=== PATIENT | male | born 1960 | race American Indian/Alaskan Native ===

== ENCOUNTER → 2017-08-30 15:19 | Outpatient (CLI) | payer BC, SELFPAY ==
[2017-08-30 18:01] LABS: Absolute Lymphocyte Count 2.44 X10^3/ul (0.83-4.51); Basophil# 0.06 X10^3/uL; Basophil% 0.7 % (0-1); Eosinophil# 0.26 X10^3/uL; Eosinophils% 3.1 % (0-5); Hematocrit 37.3 % (40-54); Hemoglobin 12.5 g/dl (13.0-16.5); Lymphocyte # 2.44 X10^3/ul (4.0); Lymphocyte % 28.8 % (19-41); Mean Corp Hgb Conc 33.5 g/gl (32-36); Mean Corpuscular Hgb 32.6 pg (27.0-32.0); Mean Corpuscular Volume 97.4 fL (80-94); Mean Platelet Vol. 10.5 fl (6.2-12.0); Monocyte# 0.65 X10^3/uL; Monocyte% 7.7 % (0-10); Neutrophil # 5.04 X10^3/uL (2.7-7.7); Neutrophil % 59.6 % (47-70); Platelet Count 191 K/mm3 (150-450); RBC Distribution Width CV 13.5 % (11.6-14.6); RBC Distribution Width SD 46.4 fl (35.1-43.9); Red Blood Count 3.83 M/mm3 (4.6-6.2); White Blood Count 8.5 K/mm3 (4.4-11.0)
[2017-08-30 18:10] LABS: POSITIVE COUNT NO; POSITIVE DIFFERENTIAL NO; POSITIVE MORPHOLOGY NO
[2017-08-30 18:37] LABS: ALB/GLOB Ratio 0.8 RATIO (0.9-2.4); AST(SGOT) 17 U/L (15-37); Alanine Aminotransfer ALT/SGPT 25 U/L (16-61); Albumin, Serum 3.4 g/dL (3.2-5.0); Alkaline Phosphatase 69 U/L (45-117); Anion Gap 8 (5-15); BUN 18 mg/dL (7-18); BUN/Creat Ratio 16.4 RATIO (10-20); Calcium,Total 8.5 mg/dL (8.5-10.1); Chloride 107 mmol/L (98-107); EST Glomerular Filtration Rate 73 mL/min (>60); Est Glom Filt Rate - Afr Amer 89 mL/min (>60); Glucose 105 mg/dL (74-106); Potassium 3.9 mmol/L (3.5-5.1); Protein, Total 7.4 g/dL (6.4-8.2); Sodium Level 137 mmol/L (136-145)
== END ==
PROVIDERS: Family Provider Family Medicine; PCP Family Medicine; Visit Provider Internal Medicine Rheumatology
DX: L40.59 Other psoriatic arthropathy (principal); L40.8 Other psoriasis; I83.10 Varicose veins of unspecified lower extremity with inflammation; I10 Essential (primary) hypertension; E78.5 Hyperlipidemia, unspecified; F32.89 Other specified depressive episodes; G25.81 Restless legs syndrome; Z79.899 Other long term (current) drug therapy
CPT/HCPCS: 36415; 80053; 85025

== ENCOUNTER → 2017-11-09 15:12 | Outpatient (CLI) | payer BC, SELFPAY ==
--- NOTE | 2017-11-09 15:12 | DT_ITS ---
This patient was seen during an EMR downtime November 08, 2017 - November 15, 2017. This patient may have a combination of paper and electronic documentation or all paper documentation. All documentation is viewable within the e-chart portion of [facility] for each patient visit.
[2017-11-15 16:54] LABS: BUN 20 mg/dL (7-18); Glucose 84 mg/dL (74-106)
[2017-11-15 16:55] LABS: ALB/GLOB Ratio 0.9 RATIO (0.9-2.4); AST(SGOT) 21 U/L (15-37); Alanine Aminotransfer ALT/SGPT 23 U/L (16-61); Albumin, Serum 3.6 g/dL (3.2-5.0); Alkaline Phosphatase 65 U/L (45-117); Anion Gap 10 (5-15); BUN/Creat Ratio 15.9 RATIO (10-20); Calcium,Total 8.3 mg/dL (8.5-10.1); Chloride 107 mmol/L (98-107); Creatinine, Serum 1.26 mg/dL (0.70-1.30); EST Glomerular Filtration Rate 63 mL/min (>60); Est Glom Filt Rate - Afr Amer 76 mL/min (>60); Globulin 3.8 g/dL (2.2-4.2); Potassium 4.1 mmol/L (3.5-5.1); Protein, Total 7.4 g/dL (6.4-8.2); Sodium Level 139 mmol/L (136-145)
[2017-11-15 17:42] LABS: Hemoglobin 12.8 g/dl (13.0-16.5); Red Blood Count 3.96 M/mm3 (4.6-6.2); White Blood Count 7.9 K/mm3 (4.4-11.0)
[2017-11-15 17:43] LABS: Absolute Lymphocyte Count 2.34 X10^3/ul (0.83-4.51); Absolute Neutrophil Count 4.4 X10^3/uL (2.0-7.7); Basophil% 0.6 % (0-1); Eosinophils% 4.7 % (0-5); Hematocrit 38.6 % (40-54); Lymphocyte # 2.34 X10^3/ul (4.0); Lymphocyte % 29.8 % (19-41); Mean Corp Hgb Conc 33.2 g/gl (32-36); Mean Corpuscular Hgb 32.3 pg (27.0-32.0); Mean Corpuscular Volume 97.5 fL (80-94); Mean Platelet Vol. 9.5 fl (6.2-12.0); Monocyte% 8.1 % (0-10); Neutrophil # 4.44 X10^3/uL (2.7-7.7); Neutrophil % 56.5 % (47-70); POSITIVE COUNT NO; POSITIVE DIFFERENTIAL NO; POSITIVE MORPHOLOGY NO; Platelet Count 233 K/mm3 (150-450)
[2017-11-15 17:44] LABS: Basophil# 0.05 X10^3/uL; Eosinophil# 0.37 X10^3/uL; Monocyte# 0.64 X10^3/uL
== END ==
PROVIDERS: Family Provider Family Medicine; PCP Family Medicine; Visit Provider Internal Medicine Rheumatology
DX: L40.59 Other psoriatic arthropathy (principal); Z79.899 Other long term (current) drug therapy; L40.8 Other psoriasis; I83.10 Varicose veins of unspecified lower extremity with inflammation; I10 Essential (primary) hypertension; E78.5 Hyperlipidemia, unspecified; F32.89 Other specified depressive episodes; G25.81 Restless legs syndrome
CPT/HCPCS: 36415; 80053; 85025

== ENCOUNTER → 2018-01-31 16:35 | Outpatient (CLI) | payer BC, SELFPAY ==
[2018-01-31 18:06] LABS: Absolute Neutrophil Count 3.8 X10^3/uL (2.0-7.7); Basophil# 0.07 X10^3/uL; Basophil% 0.9 % (0-1); Eosinophil# 0.44 X10^3/uL; Eosinophils% 5.8 % (0-5); Hematocrit 38.6 % (40-54); Hemoglobin 12.8 g/dl (13.0-16.5); Lymphocyte % 37.1 % (19-41); Mean Corp Hgb Conc 33.2 g/gl (32-36); Mean Corpuscular Hgb 32.2 pg (27.0-32.0); Mean Corpuscular Volume 97.2 fL (80-94); Mean Platelet Vol. 10.7 fl (6.2-12.0); Monocyte# 0.44 X10^3/uL; Monocyte% 5.8 % (0-10); Neutrophil # 3.79 X10^3/uL (2.7-7.7); Neutrophil % 50.3 % (47-70); Platelet Count 215 K/mm3 (150-450); RBC Distribution Width CV 13.5 % (11.6-14.6); RBC Distribution Width SD 47.8 fl (35.1-43.9); Red Blood Count 3.97 M/mm3 (4.6-6.2); White Blood Count 7.6 K/mm3 (4.4-11.0)
[2018-01-31 18:08] LABS: POSITIVE COUNT NO; POSITIVE DIFFERENTIAL NO; POSITIVE MORPHOLOGY NO
[2018-01-31 18:21] LABS: ALB/GLOB Ratio 0.9 RATIO (0.9-2.4); AST(SGOT) 17 U/L (15-37); Alanine Aminotransfer ALT/SGPT 24 U/L (16-61); Albumin, Serum 3.5 g/dL (3.2-5.0); Alkaline Phosphatase 62 U/L (45-117); Anion Gap 9 (5-15); BUN 16 mg/dL (7-18); BUN/Creat Ratio 12.1 RATIO (10-20); Calcium,Total 8.9 mg/dL (8.5-10.1); Chloride 108 mmol/L (98-107); Creatinine, Serum 1.32 mg/dL (0.70-1.30); EST Glomerular Filtration Rate 59 mL/min (>60); Est Glom Filt Rate - Afr Amer 72 mL/min (>60); Glucose 109 mg/dL (74-106); Potassium 4.1 mmol/L (3.5-5.1); Protein, Total 7.5 g/dL (6.4-8.2); Sodium Level 138 mmol/L (136-145)
== END ==
PROVIDERS: Family Provider Family Medicine; PCP Family Medicine; Visit Provider Internal Medicine Rheumatology
DX: L40.59 Other psoriatic arthropathy (principal); L40.8 Other psoriasis; I83.10 Varicose veins of unspecified lower extremity with inflammation; I10 Essential (primary) hypertension; E78.5 Hyperlipidemia, unspecified; F32.89 Other specified depressive episodes; G25.81 Restless legs syndrome; Z79.899 Other long term (current) drug therapy
CPT/HCPCS: 36415; 80053; 85025

== ENCOUNTER → 2018-03-09 20:27 | Outpatient (CLI) | payer BC, SELFPAY ==
[2018-03-09 20:29] LABS: Pathologist Comment May follow
[2018-03-09 21:00] LABS: Synovial Fld Mononuclear WBC % 73.2 %; Synovial Fld Polynuclear WBC # 0.134 10^3/ul; Synovial Fld Polynuclear WBC % 26.8 %
[2018-03-09 21:58] LABS: AUTO B FLUID DILUENT BKGD CT WBC <0.1 RBC <0.01 (W<.1,R<.01); Appearance /Synovial Fluid Sl hazy (CLEAR); Color / Synovial Fluid Yellow (Pale Yellow); RBC /Synovial Fluid 9 /mm3 (0); Source / Synovial Fluid LEFT KNEE; Source- Body Fluid SYNOVIAL
[2018-03-09 21:59] LABS: Lymph 12 %; Monocyte /Synovial Fluid 6 %; Neutrophil 1 % (0-25); Other Cell /Synovial Fluid 81 %; Synovial Fld Mononuclear WBC # 0.366 10^3/ul
[2018-03-10 15:47] LABS: Pathologist Review Reviewed
== END ==
PROVIDERS: Visit Provider Internal Medicine Rheumatology
DX: L40.59 Other psoriatic arthropathy (principal); L40.8 Other psoriasis; I83.10 Varicose veins of unspecified lower extremity with inflammation; I10 Essential (primary) hypertension; E78.5 Hyperlipidemia, unspecified; F32.89 Other specified depressive episodes; G25.81 Restless legs syndrome; Z79.899 Other long term (current) drug therapy
CPT/HCPCS: 87070; 87075; 87205; 89050; 89051; 89060

== ENCOUNTER → 2018-05-03 16:04 | Outpatient (CLI) | payer BC, SELFPAY ==
[2018-05-03 17:52] LABS: Absolute Lymphocyte Count 2.22 X10^3/ul (0.83-4.51); Absolute Neutrophil Count 3.1 X10^3/uL (2.0-7.7); Basophil# 0.07 X10^3/uL; Basophil% 1.1 % (0-1); Eosinophil# 0.47 X10^3/uL; Eosinophils% 7.1 % (0-5); Hematocrit 38.3 % (40-54); Hemoglobin 12.5 g/dl (13.0-16.5); Lymphocyte # 2.22 X10^3/ul (4.0); Lymphocyte % 33.7 % (19-41); Mean Corp Hgb Conc 32.6 g/gl (32-36); Mean Corpuscular Hgb 31.8 pg (27.0-32.0); Mean Corpuscular Volume 97.5 fL (80-94); Mean Platelet Vol. 9.9 fl (6.2-12.0); Monocyte# 0.69 X10^3/uL; Monocyte% 10.5 % (0-10); Neutrophil # 3.13 X10^3/uL (2.7-7.7); Neutrophil % 47.4 % (47-70); Platelet Count 250 K/mm3 (150-450); RBC Distribution Width CV 14.9 % (11.6-14.6); RBC Distribution Width SD 53.3 fl (35.1-43.9); Red Blood Count 3.93 M/mm3 (4.6-6.2); White Blood Count 6.6 K/mm3 (4.4-11.0)
[2018-05-03 18:00] LABS: POSITIVE COUNT NO; POSITIVE DIFFERENTIAL NO; POSITIVE MORPHOLOGY NO
[2018-05-03 18:19] LABS: AST(SGOT) 18 U/L (15-37); Alanine Aminotransfer ALT/SGPT 24 U/L (16-61); Albumin, Serum 3.7 g/dL (3.2-5.0); Alkaline Phosphatase 74 U/L (45-117); Anion Gap 6 (5-15); BUN 21 mg/dL (7-18); BUN/Creat Ratio 16.2 RATIO (10-20); Calcium,Total 8.5 mg/dL (8.5-10.1); Chloride 105 mmol/L (98-107); EST Glomerular Filtration Rate 60 mL/min (>60); Est Glom Filt Rate - Afr Amer 73 mL/min (>60); Globulin 3.7 g/dL (2.2-4.2); Glucose 98 mg/dL (74-106); Potassium 4.1 mmol/L (3.5-5.1); Protein, Total 7.4 g/dL (6.4-8.2); Sodium Level 135 mmol/L (136-145)
--- OUTSIDE RECORDS SUMMARY | 2018-06-29 08:58 | XMS RPT_ITS ---
:1960 Author Organization OHIP Care Team Providers Name Role Phone Federica Finn Attending Unavailable Marianne Beckman Primary Care Unavailable Federica Finn Attending Unavailable Federica Finn Referring Unavailable Marianne Beckman Primary Care Unavailable Vellanki, Federica Attending Unavailable Vellanki, Federica Referring Unavailable Esterle, Marianne M Primary Care Unavailable Vellanki, Federica Attending Unavailable Vellanki, Federica Referring Unavailable Esterle, Marianne M Primary Care Unavailable Vellanki, Federica Attending Unavailable Vellanki, Federica Attending Unavailable Vellanki, Federica Referring Unavailable Esterle, Marianne M Primary Care Unavailable Lavertu, Dr. Sweeney Attending Unavailable Lavertu, Dr. Sweeney Referring Unavailable Esterle, Dr. Marianne Mackay Primary Care Unavailable Lavertu, Dr. Sweeney Attending Unavailable Lavertu, Dr. Sweeney Referring Unavailable Esterle, Dr. 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 / Hospital L40.59(ICD-10) Repository 05/03/2018 Unknown L40.8 - Other Vellanki, Federica Active [facility] psoriasis / Community L40.8(ICD-10) Hospital Repository 05/03/2018 Unknown I83.10 - Varicose Vellanki, Federica Active [facility] veins of Community unspecified lower Hospital extremity with Repository inflammation / I83.10(ICD-10) 05/03/2018 Unknown I10 - Essential Vellanki, Federica Active [facility] (primary) Community hypertension / Hospital I10(ICD-10) Repository 05/03/2018 Unknown E78.5 - Vellanki, Federica Active [facility] Hyperlipidemia, Community unspecified / Hospital E78.5(ICD-10) Repository 05/03/2018 Unknown F32.89 - Other Vellanki, Federica Active [facility] specified [facility] depressive Hospital episodes / Repository F32.89(ICD-10) 05/03/2018 Unknown G25.81 - Restless Vellanki, Federica Active [facility] legs syndrome / Community G25.81(ICD-10) Hospital Repository 05/03/2018 Unknown 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, 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 / Repository Z79.899(ICD-10) PROCEDURES PROCEDURES No Procedure Records FoundRESULTS RESULTS CBC W/DIFF, AUTOMATED Collected: 05/03/2018 Status: F Source: [facility] TYPE CODE TESTS RESULT OUT OF RANGE REFERENCE UNITS LAB L100.1000 4.4-11.0 K/mm3 Normal WBC 6.6 LAB L100.1200 4.6-6.2 M/mm3 Low RBC 3.93 LAB L100.1300 13.0-16.5 g/dl Low HGB 12.5 LAB L100.1400 40-54 % Low HCT 38.3 LAB L100.1500 80-94 fL High MCV 97.5 LAB L100.1600 27.0-32.0 pg Normal MCH 31.8 LAB L100.1700 32-36 g/gl Normal MCHC 32.6 LAB L100.1810 11.6-14.6 % High RDW CV 14.9 LAB L100.1820 35.1-43.9 fl High RDW SD 53.3 LAB L100.1900 150-450 K/mm3 Normal PLT 250 LAB L100.2000 6.2-12.0 fl Normal MPV 9.9 LAB L100.2100 47-70 % Normal NEUT% 47.4 LAB L100.2200 19-41 % Normal LY% 33.7 LAB L100.2300 0-10 % High MONO% 10.5 LAB L100.2400 0-5 % High EO% 7.1 LAB L100.2500 0-1 % High BASO% 1.1 LAB L100.2550 0.0-0.9 % Normal IM GRAN % 0.200 Result Comment: IG% - Immature Granulocytes (promyelocytes, myelocytes and metamyelocytes) > 1% indicates that a LEFT SHIFT is Present. LAB L100.2620 2.0-7.7 X10 3/uL Normal Absolute Neut 3.1 LAB L100.2720 0.83-4.51 X10 3/ul Normal Absolute Lymph 2.22 Performed By: #### L100.0100 #### [facility] [address] [place], [place], [id number] COMPREHENSIVE METABOLIC Collected: 05/03/2018 Status: F Source: [facility] [place] 4:16 PM [facility] REPOSITORY TYPE CODE TESTS RESULT OUT OF RANGE REFERENCE UNITS LAB L501.0100 74-106 mg/dL Normal GLU 98 Result Comment: Please note revised GLUCOSE reference range effective 2017. LAB L501.1000 7-18 mg/dL High BUN 21 LAB L501.1100 0.70-1.30 mg/dL Normal CREAT,SERUM 1.30 Result Comment: The validity of the calculated GFR AND GFRAA in patients over 70 years has not been determined. Clinical correlation is essential. LAB L501.1110 >60 mL/min Normal EST GFR 60 Result Comment: Non- GFR Calc LAB L501.1115 >60 mL/min Normal EST GFR - AA 73 Result Comment: GFR Calc LAB L501.1300 10-20 RATIO Normal BUN/CRE 16.2 LAB L501.1500 6.4-8.2 g/dL T Normal PROT 7.4 LAB L501.1800 3.2-5.0 g/dL Normal ALB 3.7 LAB L501.1950 2.2-4.2 g/dL Normal GLOB 3.7 LAB L501.2000 0.9-2.4 RATIO Normal A/G 1.0 LAB L501.2200 8.5-10.1 mg/dL CA Normal 8.5 LAB L501.4100 15-37 U/L Normal AST 18 LAB L501.4305 45-117 U/L Normal ALK P 74 LAB L501.4405 16-61 U/L Normal ALT 24 LAB L501.4600 0.20-1.00 mg/dL T Normal BILI 0.60 LAB L501.5300 136-145 mmol/L Low NA 135 LAB L501.5600 3.5-5.1 mmol/L K Normal 4.1 LAB L501.5900 98-107 mmol/L CL Normal 105 LAB L501.6100 21.0-32.0 mmol/L Normal CO2 24.0 LAB L501.6200 5-15 Normal GAP 6 Performed By: #### L500.4050 #### [facility] [address] [place], [address] SYNOVIAL FLUID RBC, Collected: 03/09/2018 Status: F Source: [place] WBC AND DIFF 3:30 PM [facility] REPOSITORY TYPE CODE TESTS RESULT OUT OF RANGE REFERENCE UNITS LAB L200.5050 0.000-0.000 10 3 uL High SYN Tot 0.[address] Result Comment: This is the Total Number of Nucleated Cell Types in the Body Fluid. LAB L200.5200 0.000-0.002 10 3uL High SYNOVIAL WBC 0.5000 LAB L200.5260 % SYBF Normal PMN WBC% 26.8 LAB L200.5270 10 3/ul SYBF Normal PMN WBC# 0.134 LAB L200.5280 % SYBF Normal MN WBC% 73.2 LAB L200.5800 PATH Normal COM/SYFL May follow LAB L200.4600 Normal SYNOVIAL SOURCE LEFT KNEE LAB L200.4900 Pale Yellow Normal SYNOVIAL COLOR Yellow LAB L200.5000 CLEAR Normal SYNOVIAL JORGE. Sl hazy LAB L200.5100 0 /mm3 High SYNOVIAL RBC 9 LAB L200.5290 10 3/ul SYBF Normal MN WBC# 0.366 LAB L200.5300 0-25 % Normal NEUTROPHIL 1 LAB L200.5400 % LYMPH Normal 12 LAB L200.5500 % MONO Normal 6 LAB L200.5700 % OTHER Normal CELL /SYN 81 Result Comment: SYNOVIAL LINING CELLS Performed By: #### L200.0400, L200.4175 #### [facility] [address] [place], [address] CRYSTALS, BODY FLUID Collected: 03/09/2018 Status: C Source: [facility] 3:30 PM [facility] REPOSITORY TYPE CODE TESTS RESULT OUT OF RANGE REFERENCE UNITS LAB L200.4200 Normal SEE PATH REV CRYSTALS/BF LAB L200.4225 Normal SYNOVIAL SOURCE/BF LAB L200.6020 Normal PATH Reviewed REV Result Comment: Negative for malignant cells. A few nondescript crystals are noted. Richard Chun M.D. 03/10/18 AMENDED REPORT 03/10/18 1547 PATH REV previously reported as: Will follow Performed By: #### L200.0400, L200.4175 #### [facility] [address] [place], [address] Observed: 03/09/2018 Status: F Source: [facility] CULTURE, BODY FLUID 3:30 PM [facility] REPOSITORY List Antibiotics Last 48 Hours? NA List Antibiotics to be Started? NA Comments: LEFT KNEE Gram Stain Centrifuged Specimen? Culture performed on centrifuged specimen Gram Stain 2+ Red Cell Stroma No organisms seen Body Fluid Cult NO GROWTH IN 14 DAYS Cult, Anaerobic No growth in 5 days. 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 This was discovered incidentally during a routine dental care. Th is was stage a T1 N0. On June 15, 2016 he underwent the excision of this lesion. It was felt that the lesion was totally excised. The tumor depth was less than 1 mm. it was elected not to treat this a ny further. He really does not have any complaints. Unfortunately the patient has started to smoke again. He smokes approximately 8 cigarettes a day. He had a chest x-ray in May 2017 which was negative. 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) Observation for suspected cancer (V71.1) (Z03.89) Past Medical History History of High cholesterol (272.0) (E78.00) History of hypertension (V12.59) (Z86.79) History of Snoring (786.09) (R06.83) History of Ulcer (707.9) Family History Family history of malignant neoplasm of breast (V16.3) (Z80.3) Family history of malignant neoplasm of urinary bladder (V16.52) (Z80.52) Family history of malignant neoplasm of breast (V16.3) (Z80.3) Family history of malignant neoplasm of urinary bladder (V16.52) (Z80.52) Social History Alcohol use (V49.89) (Z78.9) Employed Light tobacco smoker (305.1) (F17.200) Allergies No Known Drug Allergies Recorded By: Nadine Javed; 05/08/2016 11:34:02 AM No Known Environmental Allergies Recorded By: Nadine Javed; 05/08/2016 11:34:02 AM Current Meds Chlorhexidine Gluconate 0.12 % Mouth/Throat Solution; 15 ml swish and spit three times a day; Therapy: 30Jun2016 to (Last Rx:30Jun2016) Requested for: 30Jun2016 Ordered Rx By: Patel Guillen; Dispense: 0 Days ; #:1 X 473 ML Bottle; Refill: 2;For: Malignant neoplasm of retromolar area; LUIS FELIPE = N; Verified Transmission to [facility]4360 Atorvastatin Calcium 40 MG Oral Tablet; Therapy: 25Jul2015 to Recorded Dispense: 30 Days ; #:30 TABS; Refill: 0; LUIS FELIPE = N; Record; Last Updated By: Nadine Javed; 05/08/2016 11:30:54 AM Docusate Sodium 100 MG Oral Capsule; TAKE 1 CAPSULE TWICE DAILY; Therapy: 16Jun2016 to Recorded Rx By: BLU; Dispense: 15 Days ; #:30 CAPS; Refill: 0; LUIS FELIPE = N; Record; Last Updated By: Cory Manzano; 07/29/2016 2:52:46 PM Escitalopram Oxalate 10 MG Oral Tablet; Therapy: 11May2015 to Recorded Dispense: 30 Days ; #:30 TABS; Refill: 0; LUIS FELIPE = N; Record; Last Updated By: Nadine Javed; 05/08/2016 11:30:54 AM Hydrocortisone 2.5 % External Ointment; APPLY TO THE LOWER LEGS ONCE A DAY IN THE EVENING; Therapy: 14May2016 to Recorded Rx By: CLAUDIA; Dispense: 30 Days ; #:20 OINT; Refill: 0; LUIS FELIPE = N; Record; Last Updated By: Cory Manzano; 07/29/2016 2:52:46 PM Lac-Hydrin Five 5 % External Lotion; APPLY TO THE LOWER LEGS ONCE A DAY IN THE MORNING; Therapy: 14May2016 to Recorded Rx By: CLAUDIA; Dispense: 30 Days ; #:226 LOTN; Refill: 0; LUIS FELIPE = N; Record; Last Updated By: Deep Crump; 06/30/2016 10:03:50 AM Losartan Potassium 100 MG Oral Tablet; Therapy: 62Ogg2960 to Recorded Dispense: 30 Days ; #:30 TABS; Refill: 0; LUIS FELIPE = N; Record; Last Updated By: Nadine aJved; 05/08/2016 11:30:54 AM Pramipexole Dihydrochloride 0.5 MG Oral Tablet; Therapy: 32Xvf4234 to Recorded Dispense: 30 Days ; #:30 TABS; Refill: 0; LUIS FELIPE = N; Record; Last Updated By: Nadine Javed; 05/08/2016 11:30:54 AM Spiriva HandiHaler 18 MCG Inhalation Capsule; Therapy: 07Dhd3179 to Recorded Dispense: 30 Days ; #:30 CAPS; Refill: 0; LUIS FELIPE = N; Record; Last Updated By: Nadine Javed; 05/08/2016 11:30:54 AM Ammonium Lactate 12 % External Lotion; Therapy: 01Sep2017 to Recorded Source: [employer]; [id number]; [facility] Sulfamethoxazole-Trimethoprim 800-160 MG Oral Tablet; Therapy: 48Gco5615 to Recorded Source: [employer]; 23Hbw1029; [facility] Vitals Vital Signs Recorded: 23Feb2018 03:38PM Height6 ft 2 in Figagx171 lb BMI Blphfdshkh27.87 BSA Calculated2.41 Physical Exam Examination of the oral cavity and oropharynx shows the surgical site to be well healed. It looks somewhat scarred. There is good mobility of the tongue. There is good mandibular excursion. Palpation of the neck does not show any worrisome adenopathies. A flexible laryngoscopy was carried out. Under topical Xylocaine and Tino-Synephrine the scope was introduced through the nostril. The nasopharynx, base of tongue, hypopharynx, and larynx are visualized. The vocal cords are normally mobile. There is no pooling of secretions in the piriform sinuses. There is no evidence of any mucosal lesions. The mucosa is somewhat reddish most likely because of his smoking. 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 There is no evidence of any tumor recurrence. The patient was encouraged to stop smoking. I will see him in 3 months. 1 Amended By: Patel Guillen; Feb 23 2018 5:45 PM EST Patient Discussion/Summary Status post surgery for a small lesion of the right 1 retromolar trigone. There is no evidence of any tumor recurrence. The patient was encouraged to stop smoking.I will see him in 3 months. 1 Amended By: Patel Guillen; Feb 23 2018 5:46 PM EST End of Encounter Meds Atorvastatin Calcium 40 MG Oral Tablet; Therapy: 25Jul2015 to Recorded Chlorhexidine Gluconate 0.12 % Mouth/Throat Solution; 15 ml swish and spit three times a day; Therapy: 30Jun2016 to (Last Rx:30Jun2016) Requested for: 30Jun2016 Ordered Docusate Sodium 100 MG Oral Capsule; TAKE 1 CAPSULE TWICE DAILY; Therapy: 16Jun2016 to Recorded Escitalopram Oxalate 10 MG Oral Tablet; Therapy: 12Ioo1955 to Recorded Hydrocortisone 2.5 % External Ointment; APPLY TO THE LOWER LEGS ONCE A DAY IN THE EVENING; Therapy: 42Gpi0560 to Recorded Lac-Hydrin Five 5 % External Lotion; APPLY TO THE LOWER LEGS ONCE A DAY IN THE MORNING; Therapy: 88Jfh2095 to Recorded Losartan Potassium 100 MG Oral Tablet; Therapy: 92Dwd7526 to Recorded Pramipexole Dihydrochloride 0.5 MG Oral Tablet; Therapy: 47Tkj4040 to Recorded Spiriva HandiHaler 18 MCG Inhalation Capsule; Therapy: 06Sug6631 to Recorded Ammonium Lactate 12 % External Lotion; Therapy: 01Sep2017 to Recorded Sulfamethoxazole-Trimethoprim 800-160 MG Oral Tablet; Therapy: 00Mjy2968 to Recorded Signatures Electronically signed by : Patel Guillen MD; Feb 23 2018 5:46PM EST (Author) CBC W/DIFF, AUTOMATED Collected: 01/31/2018 Status: F Source: [place] 4:39 PM [facility] REPOSITORY TYPE CODE TESTS RESULT OUT OF RANGE REFERENCE UNITS LAB L100.1000 4.4-11.0 K/mm3 Normal WBC 7.6 LAB L100.1200 4.6-6.2 M/mm3 Low RBC 3.97 LAB L100.1300 13.0-16.5 g/dl Low HGB 12.8 LAB L100.1400 40-54 % Low HCT 38.6 LAB L100.1500 80-94 fL High MCV 97.2 LAB L100.1600 27.0-32.0 pg High MCH 32.2 LAB L100.1700 32-36 g/gl Normal MCHC 33.2 LAB L100.1810 11.6-14.6 % Normal RDW CV 13.5 LAB L100.1820 35.1-43.9 fl High RDW SD 47.8 LAB L100.1900 150-450 K/mm3 Normal PLT 215 LAB L100.2000 6.2-12.0 fl Normal MPV 10.7 LAB L100.2100 47-70 % Normal NEUT% 50.3 LAB L100.2200 19-41 % Normal LY% 37.1 LAB L100.2300 0-10 % Normal MONO% 5.8 LAB L100.2400 0-5 % High EO% 5.8 LAB L100.2500 0-1 % Normal BASO% 0.9 LAB L100.2550 0.0-0.9 % Normal IM GRAN % 0.100 Result Comment: IG% - Immature Granulocytes (promyelocytes, myelocytes and metamyelocytes) > 1% indicates that a LEFT SHIFT is Present. LAB L100.2620 2.0-7.7 X10 3/uL Normal Absolute Neut 3.8 LAB L100.2720 0.83-4.51 X10 3/ul Normal Absolute Lymph 2.80 Performed By: #### L100.0100 #### [facility] [address] [place], [address] COMPREHENSIVE METABOLIC Collected: 01/31/2018 Status: F Source: [facility] 4:39 PM [facility] REPOSITORY TYPE CODE TESTS RESULT OUT OF RANGE REFERENCE UNITS LAB L501.0100 74-106 mg/dL High GLU 109 Result Comment: Fasting Glucose result from 100 to 125 mg/dL suggests IMPAIRED HOMEOSTASIS per A.D.A. criteria. Please note revised GLUCOSE reference range effective 2017. LAB L501.1000 7-18 mg/dL Normal BUN 16 LAB L501.1100 0.70-1.30 mg/dL High CREAT,SERUM 1.32 Result Comment: The validity of the calculated GFR AND GFRAA in patients over 70 years has not been determined. Clinical correlation is essential. LAB L501.1110 >60 mL/min Low EST GFR 59 Result Comment: Non- GFR Calc LAB L501.1115 >60 mL/min Normal EST GFR - AA 72 Result Comment: GFR Calc LAB L501.1300 10-20 RATIO Normal BUN/CRE 12.1 LAB L501.1500 6.4-8.2 g/dL T Normal PROT 7.5 LAB L501.1800 3.2-5.0 g/dL Normal ALB 3.5 LAB L501.1950 2.2-4.2 g/dL Normal GLOB 4.0 LAB L501.2000 0.9-2.4 RATIO Normal A/G 0.9 LAB L501.2200 8.5-10.1 mg/dL CA Normal 8.9 LAB L501.4100 15-37 U/L Normal AST 17 LAB L501.4305 45-117 U/L Normal ALK P 62 LAB L501.4405 16-61 U/L Normal ALT 24 LAB L501.4600 0.20-1.00 mg/dL T Normal BILI 0.40 LAB L501.5300 136-145 mmol/L NA Normal 138 LAB L501.5600 3.5-5.1 mmol/L K Normal 4.1 LAB L501.5900 98-107 mmol/L High CL 108 LAB L501.6100 21.0-32.0 mmol/L Normal CO2 21.0 LAB L501.6200 5-15 Normal GAP 9 Performed By: #### L500.4050 #### [facility] [address] [place], [address] ESTABLISHED VISIT Observed: 12/01/2017 Status: UNK Source: [place] (OTOLARYNGOLOGY) 3:41 PM [facility] REPOSITORY Chief Complaint Follow-up status post surgery for a squamous cell carcinoma of the oral cavity History of Present Illness This gentleman was seen at the request of a local colleague for the management of a squamous cell carcinoma of the oral cavity. This was discovered incidentally during a routine dental care. This was st age a T1 N0. On June 15, 2016 he underwent the excision of this lesion. It was felt that the lesion was totally excised. The tumor depth was less than 1 mm. it was elected not to treat this any furthe r. He really does not have any complaints. Unfortunately the patient has started to smoke again. He smokes approximately 8 cigarettes a day. He had a chest x- ray in May 2017 which was negative. 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) Observation for suspected cancer (V71.1) (Z03.89) Past Medical History History of High cholesterol (272.0) (E78.00) History of hypertension (V12.59) (Z86.79) History of Snoring (786.09) (R06.83) History of Ulcer (707.9) Family History Family history of malignant neoplasm of breast (V16.3) (Z80.3) Family history of malignant neoplasm of urinary bladder (V16.52) (Z80.52) Family history of malignant neoplasm of breast (V16.3) (Z80.3) Family history of malignant neoplasm of urinary bladder (V16.52) (Z80.52) Social History Alcohol use (V49.89) (Z78.9) Employed Light tobacco smoker (305.1) (F17.200) Allergies No Known Drug Allergies Recorded By: Nadine Javed; 05/08/2016 11:34:02 AM No Known Environmental Allergies Recorded By: Nadine Javed; 05/08/2016 11:34:02 AM Current Meds Chlorhexidine Gluconate 0.12 % Mouth/Throat Solution; 15 ml swish and spit three times a day; Therapy: 30Jun2016 to (Last Rx:30Jun2016) Requested for: 30Jun2016 Ordered Rx By: Patel Guillen; Dispense: 0 Days ; #:1 X 473 ML Bottle; Refill: 2;For: Malignant neoplasm of retromolar area; LUIS FELIPE = N; Verified Transmission to [facility] #4360 Atorvastatin Calcium 40 MG Oral Tablet; Therapy: 25Jul2015 to Recorded Dispense: 30 Days ; #:30 TABS; Refill: 0; LUIS FELIPE = N; Record; Last Updated By: Nadine Javed; 05/08/2016 11:30:54 AM Docusate Sodium 100 MG Oral Capsule; TAKE 1 CAPSULE TWICE DAILY; Therapy: 16Jun2016 to Recorded Rx By: BLU; Dispense: 15 Days ; #:30 CAPS; Refill: 0; LUIS FELIPE = N; Record; Last Updated By: Cory Manzano; 07/29/2016 2:52:46 PM Escitalopram Oxalate 10 MG Oral Tablet; Therapy: 78Fnp7229 to Recorded Dispense: 30 Days ; #:30 TABS; Refill: 0; LUIS FELIPE = N; Record; Last Updated By: Nadine Javed; 05/08/2016 11:30:54 AM Hydrocortisone 2.5 % External Ointment; APPLY TO THE LOWER LEGS ONCE A DAY IN THE EVENING; Therapy: 14May2016 to Recorded Rx By: CLAUDIA; Dispense: 30 Days ; #:20 OINT; Refill: 0; LUIS FELIPE = N; Record; Last Updated By: Cory Manzano; 07/29/2016 2:52:46 PM Lac-Hydrin Five 5 % External Lotion; APPLY TO THE LOWER LEGS ONCE A DAY IN THE MORNING; Therapy: 14May2016 to Recorded Rx By: CLAUDIA; Dispense: 30 Days ; #:226 LOTN; Refill: 0; LUIS FELIPE = N; Record; Last Updated By: Deep Crump; 06/30/2016 10:03:50 AM Losartan Potassium 100 MG Oral Tablet; Therapy: 59Eon4593 to Recorded Dispense: 30 Days ; #:30 TABS; Refill: 0; LUIS FELIPE = N; Record; Last Updated By: Nadine Javed; 05/08/2016 11:30:54 AM Pramipexole Dihydrochloride 0.5 MG Oral Tablet; Therapy: 91Gri1342 to Recorded Dispense: 30 Days ; #:30 TABS; Refill: 0; LUIS FELIPE = N; Record; Last Updated By: Nadine Javed; 05/08/2016 11:30:54 AM Spiriva HandiHaler 18 MCG Inhalation Capsule; Therapy: 76Qcw5445 to Recorded Dispense: 30 Days ; #:30 CAPS; Refill: 0; LUIS FELIPE = N; Record; Last Updated By: Nadine Javed; 05/08/2016 11:30:54 AM Vitals Vital Signs Recorded: 01Dec2017 03:28PM Height6 ft 2 in Gntmtn911 lb BMI Kzlbfowian94.48 BSA Calculated2.4 Physical Exam Examination of the oral cavity and oropharynx shows the surgical site to be well healed. It looks somewhat scarred. There is good mobility of the tongue. There is good mandibular excursion. Palpation of the neck does not show any worrisome adenopathies. A flexible laryngoscopy was carried out. Under topical Xylocaine and Tino-Synephrine the scope was introduced through the nostril. The nasopharynx, base of tongue, hypopharynx, and larynx are visualized. The vocal cords are normally mobile. There is no pooling of secretions in the piriform sinuses. There is no evidence of any mucosal lesions. The mucosa is somewhat reddish most likely because of his smoking. 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 There is no evidence of any tumor recurrence. The patient was encouraged to stop smoking. I will see him in 3 months. Patient Discussion/Summary Status post surgery for a small lesion of the retromolar trigone. There is no evidence of any tumor recurrence. The patient was encouraged to stop smoking. I will see him in 3 months. End of Encounter Meds Atorvastatin Calcium 40 MG Oral Tablet; Therapy: 25Jul2015 to Recorded Chlorhexidine Gluconate 0.12 % Mouth/Throat Solution; 15 ml swish and spit three times a day; Therapy: 30Jun2016 to (Last Rx:30Jun2016) Requested for: 30Jun2016 Ordered Docusate Sodium 100 MG Oral Capsule; TAKE 1 CAPSULE TWICE DAILY; Therapy: 16Jun2016 to Recorded Escitalopram Oxalate 10 MG Oral Tablet; Therapy: 11May2015 to Recorded Hydrocortisone 2.5 % External Ointment; APPLY TO THE LOWER LEGS ONCE A DAY IN THE EVENING; Therapy: 14May2016 to Recorded Lac-Hydrin Five 5 % External Lotion; APPLY TO THE LOWER LEGS ONCE A DAY IN THE MORNING; Therapy: 14May2016 to Recorded Losartan Potassium 100 MG Oral Tablet; Therapy: 08Jul2015 to Recorded Pramipexole Dihydrochloride 0.5 MG Oral Tablet; Therapy: 20Jul2015 to Recorded Spiriva HandiHaler 18 MCG Inhalation Capsule; Therapy: 11May2015 to Recorded Signatures Electronically signed by : Patel Guillen MD; Dec 01 2017 3:41PM EST (Author) DOWNTIME REPORT Observed: 11/25/2017 Status: F Source: [place] 2:17 PM [facility] REPOSITORY [facility] Medical Records Department [address] [place] [address] Downtime Report MR#: [id number] Acct: [id number] Name: TEENA KELLEY Rep #: [id number] : 1960 56 From: Jose Felix PCP: Marianne Beckman Status: REG CLI This patient was seen during an EMR downtime November 08, 2017 - November 15, 2017. This patient may have a combination of paper and electronic documentation or all paper documentation. All documentation is viewable within the e-chart portion of [facility] for each patient visit. COMPREHENSIVE METABOLIC Collected: 11/09/2017 Status: F Source: [place] [facility]IL 3:24 PM [facility] REPOSITORY Order Comment: RESULT(S) PREVIOUSLY REPORTED ON MANUAL REQUISITION DURING DOWNTIME. TYPE CODE TESTS RESULT OUT OF RANGE REFERENCE UNITS LAB L501.0100 74-106 mg/dL Normal GLU 84 Result Comment: Please note revised GLUCOSE reference range effective 2017. LAB L501.1000 7-18 mg/dL High BUN 20 LAB L501.1100 0.70-1.30 mg/dL Normal CREAT,SERUM 1.26 Result Comment: The validity of the calculated GFR AND GFRAA in patients over 70 years has not been determined. Clinical correlation is essential. LAB L501.1110 >60 mL/min Normal EST GFR 63 LAB L501.1115 >60 mL/min Normal EST GFR - AA 76 LAB L501.1300 10-20 RATIO Normal BUN/CRE 15.9 LAB L501.1500 6.4-8.2 g/dL Normal T PROT 7.4 LAB L501.1800 3.2-5.0 g/dL Normal ALB 3.6 LAB L501.1950 2.2-4.2 g/dL Normal GLOB 3.8 LAB L501.2000 0.9-2.4 RATIO Normal A/G 0.9 LAB L501.2200 8.5-10.1 mg/dL Low CA 8.3 LAB L501.4100 15-37 U/L Normal AST 21 LAB L501.4305 45-117 U/L Normal ALK P 65 LAB L501.4405 16-61 U/L Normal ALT 23 LAB L501.4600 0.20-1.00 mg/dL Normal T BILI 0.80 LAB L501.5300 136-145 mmol/L Normal NA 139 LAB L501.5600 3.5-5.1 mmol/L Normal K 4.1 LAB L501.5900 98-107 mmol/L Normal CL 107 LAB L501.6100 21.0-32.0 mmol/L Normal CO2 22.0 LAB L501.6200 5-15 Normal GAP 10 Performed By: #### L500.4050 #### [facility] [address] [place], [address] CBC W/DIFF, AUTOMATED Collected: 11/09/2017 Status: F Source: [place] 3:24 PM [facility] REPOSITORY Order Comment: RESULT(S) PREVIOUSLY REPORTED ON MANUAL REQUISITION DURING DOWNTIME. TYPE CODE TESTS RESULT OUT OF RANGE REFERENCE UNITS LAB L100.1000 4.4-11.0 K/mm3 Normal WBC 7.9 LAB L100.1200 4.6-6.2 M/mm3 Low RBC 3.96 LAB L100.1300 13.0-16.5 g/dl Low HGB 12.8 LAB L100.1400 40-54 % Low HCT 38.6 LAB L100.1500 80-94 fL High MCV 97.5 LAB L100.1600 27.0-32.0 pg High MCH 32.3 LAB L100.1700 32-36 g/gl Normal MCHC 33.2 LAB L100.1810 11.6-14.6 % Normal RDW CV 14.0 LAB L100.1820 35.1-43.9 fl High RDW SD 50.0 LAB L100.1900 150-450 K/mm3 Normal PLT 233 LAB L100.2000 6.2-12.0 fl Normal MPV 9.5 LAB L100.2100 47-70 % Normal NEUT% 56.5 LAB L100.2200 19-41 % Normal LY% 29.8 LAB L100.2300 0-10 % Normal MONO% 8.1 LAB L100.2400 0-5 % Normal EO% 4.7 LAB L100.2500 0-1 % Normal BASO% 0.6 LAB L100.2550 0.0-0.9 % Normal IM GRAN % 0.300 Result Comment: IG% - Immature Granulocytes (promyelocytes, myelocytes and metamyelocytes) > 1% indicates that a LEFT SHIFT is Present. LAB L100.2620 2.0-7.7 X10 3/uL Normal Absolute Neut 4.4 LAB L100.2720 0.83-4.51 X10 3/ul Normal Absolute Lymph 2.34 Performed By: #### L100.0100 #### [facility] [place], [address] CBC W/DIFF, AUTOMATED Collected: 08/30/2017 Status: F Source: [place] 3:27 PM [facility] REPOSITORY TYPE CODE TESTS RESULT OUT OF RANGE REFERENCE UNITS LAB L100.1000 4.4-11.0 K/mm3 Normal WBC 8.5 LAB L100.1200 4.6-6.2 M/mm3 Low RBC 3.83 LAB L100.1300 13.0-16.5 g/dl Low HGB 12.5 LAB L100.1400 40-54 % Low HCT 37.3 LAB L100.1500 80-94 fL High MCV 97.4 LAB L100.1600 27.0-32.0 pg High MCH 32.6 LAB L100.1700 32-36 g/gl Normal MCHC 33.5 LAB L100.1810 11.6-14.6 % Normal RDW CV 13.5 LAB L100.1820 35.1-43.9 fl High RDW SD 46.4 LAB L100.1900 150-450 K/mm3 Normal PLT 191 LAB L100.2000 6.2-12.0 fl Normal MPV 10.5 LAB L100.2100 47-70 % Normal NEUT% 59.6 LAB L100.2200 19-41 % Normal LY% 28.8 LAB L100.2300 0-10 % Normal MONO% 7.7 LAB L100.2400 0-5 % Normal EO% 3.1 LAB L100.2500 0-1 % Normal BASO% 0.7 LAB L100.2550 0.0-0.9 % Normal IM GRAN % 0.100 Result Comment: IG% - Immature Granulocytes (promyelocytes, myelocytes and metamyelocytes) > 1% indicates that a LEFT SHIFT is Present. LAB L100.2620 2.0-7.7 X10 3/uL Normal Absolute Neut 5.0 LAB L100.2720 0.83-4.51 X10 3/ul Normal Absolute Lymph 2.44 Performed By: #### L100.0100 #### [facility] [address] [place], [address] COMPREHENSIVE METABOLIC Collected: 08/30/2017 Status: F Source: [place] 3:27 PM [facility] REPOSITORY TYPE CODE TESTS RESULT OUT OF RANGE REFERENCE UNITS LAB L501.0100 74-106 mg/dL Normal GLU 105 Result Comment: Fasting Glucose result from 100 to 125 mg/dL suggests IMPAIRED HOMEOSTASIS per A.D.A. criteria. Please note revised GLUCOSE reference range effective 2017. LAB L501.1000 7-18 mg/dL Normal BUN 18 LAB L501.1100 0.70-1.30 mg/dL Normal CREAT,SERUM 1.10 Result Comment: The validity of the calculated GFR AND GFRAA in patients over 70 years has not been determined. Clinical correlation is essential. LAB L501.1110 >60 mL/min Normal EST GFR 73 Result Comment: Non- GFR Calc LAB L501.1115 >60 mL/min Normal EST GFR - AA 89 Result Comment: GFR Calc LAB L501.1300 10-20 RATIO Normal BUN/CRE 16.4 LAB L501.1500 6.4-8.2 g/dL T Normal PROT 7.4 LAB L501.1800 3.2-5.0 g/dL Normal ALB 3.4 LAB L501.1950 2.2-4.2 g/dL Normal GLOB 4.0 LAB L501.2000 0.9-2.4 RATIO Low A/G 0.8 LAB L501.2200 8.5-10.1 mg/dL CA Normal 8.5 LAB L501.4100 15-37 U/L Normal AST 17 LAB L501.4305 45-117 U/L Normal ALK P 69 LAB L501.4405 16-61 U/L Normal ALT 25 Result Comment: Please note revised ALT reference range effective 2017. LAB L501.4600 0.20-1.00 mg/dL Normal T BILI 0.70 LAB L501.5300 136-145 mmol/L Normal NA 137 LAB L501.5600 3.5-5.1 mmol/L Normal K 3.9 LAB L501.5900 98-107 mmol/L Normal CL 107 LAB L501.6100 21.0-32.0 mmol/L Normal CO2 22.0 LAB L501.6200 5-15 Normal GAP 8 Performed By: #### L500.4050 #### [facility] [place], [address] CBC W/DIFF, AUTOMATED Collected: 05/28/2017 Status: F Source: [place] 11:56 AM [facility] REPOSITORY TYPE CODE TESTS RESULT OUT OF RANGE REFERENCE UNITS LAB L100.1000 4.4-11.0 K/mm3 Normal WBC 6.1 LAB L100.1200 4.6-6.2 M/mm3 Low RBC 4.22 LAB L100.1300 13.0-16.5 g/dl Normal HGB 13.2 LAB L100.1400 40-54 % Normal HCT 40.8 LAB L100.1500 80-94 fL High MCV 96.7 LAB L100.1600 27.0-32.0 pg Normal MCH 31.3 LAB L100.1700 32-36 g/gl Normal MCHC 32.4 LAB L100.1810 11.6-14.6 % Normal RDW CV 14.6 LAB L100.1820 35.1-43.9 fl High RDW SD 51.1 LAB L100.1900 150-450 K/mm3 Normal PLT 220 LAB L100.2000 6.2-12.0 fl Normal MPV 10.1 LAB L100.2100 47-70 % Normal NEUT% 62.9 LAB L100.2200 19-41 % Normal LY% 21.9 LAB L100.2300 0-10 % Normal MONO% 7.4 LAB L100.2400 0-5 % High EO% 6.5 LAB L100.2500 0-1 % High BASO% 1.1 LAB L100.2550 0.0-0.9 % Normal IM GRAN % 0.200 Result Comment: IG% - Immature Granulocytes (promyelocytes, myelocytes and metamyelocytes) > 1% indicates that a LEFT SHIFT is Present. LAB L100.2620 2.0-7.7 X10 3/uL Normal Absolute Neut 3.9 LAB L100.2720 0.83-4.51 X10 3/ul Normal Absolute Lymph 1.34 Performed By: #### L100.0100 #### [facility] [address] [place], [address] COMPREHENSIVE METABOLIC Collected: 05/28/2017 Status: F Source: [place] [facility] 11:56 AM [facility] REPOSITORY TYPE CODE TESTS RESULT OUT OF RANGE REFERENCE UNITS LAB L501.0100 70-110 mg/dL Normal GLU 92 LAB L501.1000 7-18 mg/dL Normal BUN 11 LAB L501.1100 0.70-1.30 mg/dL Normal 0.93 CREAT,SERUM Result Comment: The validity of the calculated GFR AND GFRAA in patients over 70 years has not been determined. Clinical correlation is essential. LAB L501.1110 >60 mL/min Normal EST GFR 89 Result Comment: Non- GFR Calc LAB L501.1115 >60 mL/min Normal EST GFR - AA 108 Result Comment: GFR Calc LAB L501.1300 10-20 RATIO Normal BUN/CRE 11.8 LAB L501.1500 6.4-8.2 g/dL T Normal PROT 7.5 LAB L501.1800 3.4-5.0 g/dL Normal ALB 3.5 Result Comment: Please note revised Albumin AND Globulin reference range effective 2017. LAB L501.1950 2.2-4.2 g/dL Normal GLOB 4.0 LAB L501.2000 0.9-2.4 RATIO Normal A/G 0.9 LAB L501.2200 8.5-10.1 mg/dL Normal CA 8.8 LAB L501.4100 15-37 U/L Normal AST 32 LAB L501.4305 45-117 U/L Normal ALK P 63 LAB L501.4405 12-78 U/L Normal ALT 31 LAB L501.4600 0.20-1.00 mg/dL Normal T BILI 0.90 LAB L501.5300 136-145 mmol/L Normal NA 136 LAB L501.5600 3.5-5.1 mmol/L Normal K 3.8 LAB L501.5900 98-107 mmol/L Normal CL 104 LAB L501.6100 21.0-32.0 mmol/L Normal CO2 26.0 LAB L501.6200 5-15 Normal GAP 6 Performed By: #### L500.4050 #### [facility] [address] [place], [address] ALLERGIES ALLERGIES DATE TYPE / CODE NAME / CODE REACTION SEVERITY SOURCE 08/07/2016 Drug zinc Rash SV [facility] Allergy/4160 oxide/[id number] Hospital 48232(SNOMED 1922(RXNORM) Repository CT) ENCOUNTERS ENCOUNTERS ADMIT/DISCHARGE ACCOUNT ADMITTING ENCOUNTER LOCATION SOURCE NUMBER CLASS 05/03/2018 [id number] [facility] ing:MTLAB Repository 03/09/2018 [id number] [facility] ing:LABSPEC Repository 02/23/[id number] Repository 01/31/2018 [id number] [facility] ing:MTLAB Repository 12/01/[id number] Repository 11/09/2017 [id number] [facility] ing:MTLAB Repository 08/30/2017 [id number] [facility] ing:MTLAB Repository 05/28/2017 [id number] [facility] ing:MTLAB Repository PAYERS PAYERS ENCOUNTER GUARANTOR PAYER SUBSCRIBER SOURCE 05/03/2018 TEENA LEWIS Primary TEENA HODGEB: [place] Insurance:[place]HE[place]olic [id number] Number: [facility] [id number]: (273) [id number] Repository [phone] () Date:[id number] [address]FJ: 05/03/2018 Secondary NOT GIVENUNK [place] Insurance:SELF PAY [facility] Number: Effective Repository Date:2018-05-03 03/09/2018 TEENA LEWIS Primary TEENA HODGEB: [place] Insurance:ANTHEMPolic [id number] Number: Hospital [address]Bcn: 330 [id number] Repository [phone] (HP) Date:[id number] [address] [place] [address]AX: 03/09/2018 Secondary NOT GIVENUNK [place] Insurance:SELF PAY [facility] Number: Effective Repository Date:2018-03-09 02/23/2018 TEENA HODGEB: Primary TEENA HODGEB: [place] [facility] [id number] [place] [address] y Number: [address] Repository [place] [id number] [place] [id number]: Date:Plan Name:[facility] [id number]: (HP) (HP) 01/31/2018 TEENA LEWIS Primary TEENA HODGEB: [facility] Insurance:ANTHEMPolic [id number] [facility] [place] Number: Hospital [address]Nvx: [phone] [id number] Repository [phone] (HP) Date:3087-41-94NY [address] [place] [address]TQ: 01/31/2018 Secondary NOT GIVENUNK [place] Insurance:SELF PAY [facility] Number: Effective Repository Date:2018-01-31 12/01/2017 TEENA SANTANA: Primary TEENA HODGEB: [place] [facility] [id number] [place] [address] y Number: [address] [place] Repository [place] [id number] [place] [id number]: Date:Plan Name:Health [id number]: (HP) (HP) 11/09/2017 TEENA STAFFORD5 Primary TEENA HODGEB: [place] Insurance:ANTHEMPolic [id number] [facility] [place] Number: Hospital [address]Sqm: ([phone]) [id number] Repository [phone] () Date:1049-87-79VJ [address]HZINNCDCOREY LAM [address]XZ: 11/09/2017 Secondary NOT GIVENUNK [place] Insurance:SELF PAY [facility] Effective Repository Date:2017-11-09 08/30/2017 TEENA Womack [id number] Primary TEENA KELLEYDOB: [place] Insurance:ANTHEMPolic [id number] [facility] [place] [facility] Hospital [address]Eiy: [id number] Repository [phone] Date:[id number] [address] ) [place] [address]IW: 08/30/2017 Secondary NOT GIVENUNK [place] Insurance:SELF PAY [facility] Number: Effective Repository Date:2017-08-30 05/28/2017 Teena Stafford5 Primary Teena KelleyDOB: [place] Insurance:ANTHEMPolic [id number] [facility] [place] [facility] [address]Zdv: [id number] Repository [phone] Date:1673-91-60TR [address] ) [address], [place] [address]DZ: 05/28/2017 Secondary NOT GIVENUNK [place] Insurance:SELF PAY [facility] Number: Effective Repository Date:2017-05-28
== END ==
PROVIDERS: Family Provider Family Medicine; PCP Family Medicine; Referring Provider Internal Medicine Rheumatology; Visit Provider Internal Medicine Rheumatology
DX: L40.59 Other psoriatic arthropathy (principal); L40.8 Other psoriasis; I83.10 Varicose veins of unspecified lower extremity with inflammation; I10 Essential (primary) hypertension; E78.5 Hyperlipidemia, unspecified; F32.89 Other specified depressive episodes; G25.81 Restless legs syndrome; Z79.899 Other long term (current) drug therapy
CPT/HCPCS: 36415; 80053; 85025

== ENCOUNTER → 2018-07-26 15:13 | Outpatient (CLI) | payer BC, SELFPAY ==
[2018-07-26 17:30] LABS: Absolute Neutrophil Count 3.8 X10^3/uL (2.0-7.7); Basophil# 0.07 X10^3/uL; Eosinophils% 6.9 % (0-5); Hematocrit 37.5 % (40-54); Hemoglobin 12.3 g/dl (13.0-16.5); Lymphocyte % 30.5 % (19-41); Mean Corp Hgb Conc 32.8 g/gl (32-36); Mean Corpuscular Hgb 33.2 pg (27.0-32.0); Mean Corpuscular Volume 101.1 fL (80-94); Monocyte# 0.64 X10^3/uL; Monocyte% 8.9 % (0-10); Neutrophil % 52.6 % (47-70); POSITIVE COUNT NO; POSITIVE DIFFERENTIAL NO; POSITIVE MORPHOLOGY NO; Platelet Count 239 K/mm3 (150-450); RBC Distribution Width CV 14.9 % (11.6-14.6); RBC Distribution Width SD 53.9 fl (35.1-43.9); Red Blood Count 3.71 M/mm3 (4.6-6.2); White Blood Count 7.2 K/mm3 (4.4-11.0)
[2018-07-26 17:44] LABS: BUN 20 mg/dL (7-18); Creatinine, Serum 1.19 mg/dL (0.70-1.30); Glucose 92 mg/dL (74-106)
[2018-07-26 17:45] LABS: ALB/GLOB Ratio 0.9 RATIO (0.9-2.4); AST(SGOT) 18 U/L (15-37); Alanine Aminotransfer ALT/SGPT 31 U/L (16-61); Albumin, Serum 3.5 g/dL (3.2-5.0); Alkaline Phosphatase 66 U/L (45-117); Anion Gap 10 (5-15); BUN/Creat Ratio 16.8 RATIO (10-20); Calcium,Total 8.8 mg/dL (8.5-10.1); Chloride 107 mmol/L (98-107); EST Glomerular Filtration Rate 67 mL/min (>60); Est Glom Filt Rate - Afr Amer 81 mL/min (>60); Globulin 3.7 g/dL (2.2-4.2); Potassium 3.8 mmol/L (3.5-5.1); Protein, Total 7.2 g/dL (6.4-8.2); Sodium Level 138 mmol/L (136-145)
== END ==
PROVIDERS: Family Provider Family Medicine; PCP Family Medicine; Referring Provider Internal Medicine Rheumatology; Visit Provider Internal Medicine Rheumatology
DX: L40.59 Other psoriatic arthropathy (principal); L40.8 Other psoriasis; M25.562 Pain in left knee; I83.10 Varicose veins of unspecified lower extremity with inflammation; I10 Essential (primary) hypertension; E78.5 Hyperlipidemia, unspecified; F32.89 Other specified depressive episodes; G25.81 Restless legs syndrome; Z79.899 Other long term (current) drug therapy
CPT/HCPCS: 36415; 80053; 85025

== ENCOUNTER → 2018-10-24 | Outpatient (CLI) | payer BC, SELFPAY ==
[2018-10-24 17:57] LABS: AST(SGOT) 18 U/L (15-37); Alanine Aminotransfer ALT/SGPT 30 U/L (16-61); Albumin, Serum 3.7 g/dL (3.2-5.0); Alkaline Phosphatase 70 U/L (45-117); Anion Gap 7 (5-15); BUN 21 mg/dL (7-18); BUN/Creat Ratio 16.9 RATIO (10-20); Calcium,Total 8.6 mg/dL (8.5-10.1); Chloride 107 mmol/L (98-107); Creatinine, Serum 1.24 mg/dL (0.70-1.30); EST Glomerular Filtration Rate 64 mL/min (>60); Est Glom Filt Rate - Afr Amer 77 mL/min (>60); Globulin 3.8 g/dL (2.2-4.2); Glucose 102 mg/dL (74-106); Potassium 3.8 mmol/L (3.5-5.1); Protein, Total 7.5 g/dL (6.4-8.2); Sodium Level 137 mmol/L (136-145)
[2018-10-24 18:06] LABS: Absolute Lymphocyte Count 2.37 X10^3/ul (0.83-4.51); Basophil# 0.05 X10^3/uL; Basophil% 0.7 % (0-1); Eosinophil# 0.37 X10^3/uL; Eosinophils% 4.9 % (0-5); Hematocrit 38.9 % (40-54); Hemoglobin 12.7 g/dl (13.0-16.5); Lymphocyte # 2.37 X10^3/ul (4.0); Lymphocyte % 31.3 % (19-41); Mean Corp Hgb Conc 32.6 g/gl (32-36); Mean Corpuscular Hgb 32.1 pg (27.0-32.0); Mean Corpuscular Volume 98.2 fL (80-94); Mean Platelet Vol. 10.4 fl (6.2-12.0); Monocyte# 0.73 X10^3/uL; Monocyte% 9.6 % (0-10); Neutrophil # 4.04 X10^3/uL (2.7-7.7); Neutrophil % 53.4 % (47-70); POSITIVE COUNT NO; POSITIVE DIFFERENTIAL NO; Platelet Count 239 K/mm3 (150-450); RBC Distribution Width CV 13.3 % (11.6-14.6); Red Blood Count 3.96 M/mm3 (4.6-6.2); White Blood Count 7.6 K/mm3 (4.4-11.0)
[2018-10-24 18:07] LABS: POSITIVE MORPHOLOGY NO
== END | disposition home or self-care (01) ==
LOC: MTLAB 15:06
PROVIDERS: Family Provider Family Medicine; PCP Family Medicine; Referring Provider Internal Medicine Rheumatology; Visit Provider Internal Medicine Rheumatology
DX: L40.59 Other psoriatic arthropathy (principal); L40.8 Other psoriasis; M25.562 Pain in left knee; I83.10 Varicose veins of unspecified lower extremity with inflammation; E78.5 Hyperlipidemia, unspecified; F32.89 Other specified depressive episodes; G25.81 Restless legs syndrome; I10 Essential (primary) hypertension; Z79.899 Other long term (current) drug therapy
CPT/HCPCS: 36415; 80053; 85025

== ENCOUNTER → 2019-01-10 | Outpatient (CLI) | payer BC, SELFPAY ==
[2019-01-10 17:31] LABS: Absolute Lymphocyte Count 2.38 X10^3/uL (0.83-4.51); Absolute Neutrophil Count 2.7 X10^3/uL (2.0-7.7); Basophil# 0.08 X10^3/uL; Basophil% 1.3 % (0-1); Eosinophil# 0.64 X10^3/uL; Hematocrit 37.4 % (40-54); Hemoglobin 12.2 g/dL (13.0-16.5); Lymphocyte # 2.38 X10^3/ul (4.0); Lymphocyte % 37.3 % (19-41); Mean Corp Hgb Conc 32.6 g/dL (32-36); Mean Corpuscular Hgb 31.9 pg (27.0-32.0); Mean Corpuscular Volume 97.7 fL (80-94); Mean Platelet Vol. 10.5 fl (6.2-12.0); Monocyte# 0.59 X10^3/uL; Monocyte% 9.2 % (0-10); NRBC Flagged by Analyzer 0 % (0-5); Neutrophil # 2.68 X10^3/uL (2.7-7.7); Platelet Count 219 K/mm3 (150-450); RBC Distribution Width CV 13.3 % (11.6-14.6); RBC Distribution Width SD 47.7 fl (35.1-43.9); Red Blood Count 3.83 M/mm3 (4.6-6.2); White Blood Count 6.4 K/mm3 (4.4-11.0)
[2019-01-10 18:53] LABS: ALB/GLOB Ratio 0.9 RATIO (0.9-2.4); AST(SGOT) 18 U/L (15-37); Alanine Aminotransfer ALT/SGPT 25 U/L (16-61); Albumin, Serum 3.5 g/dL (3.2-5.0); Alkaline Phosphatase 68 U/L (45-117); Anion Gap 6 (5-15); BUN 15 mg/dL (7-18); BUN/Creat Ratio 13.9 RATIO (10-20); Calcium,Total 9.1 mg/dL (8.5-10.1); Chloride 109 mmol/L (98-107); Creatinine, Serum 1.08 mg/dL (0.70-1.30); EST Glomerular Filtration Rate 75 mL/min (>60); Est Glom Filt Rate - Afr Amer 90 mL/min (>60); Globulin 3.7 g/dL (2.2-4.2); Glucose 83 mg/dL (74-106); Potassium 4.1 mmol/L (3.5-5.1); Protein, Total 7.2 g/dL (6.4-8.2); Sodium Level 140 mmol/L (136-145)
== END | disposition home or self-care (01) ==
LOC: MTLAB 16:12
PROVIDERS: Family Provider Family Medicine; PCP Family Medicine; Referring Provider Internal Medicine Rheumatology; Visit Provider Internal Medicine Rheumatology
DX: L40.59 Other psoriatic arthropathy (principal); L40.8 Other psoriasis; I83.10 Varicose veins of unspecified lower extremity with inflammation; I10 Essential (primary) hypertension; E78.5 Hyperlipidemia, unspecified; F32.89 Other specified depressive episodes; G25.81 Restless legs syndrome; Z79.899 Other long term (current) drug therapy
CPT/HCPCS: 36415; 80053; 85025

== ENCOUNTER → 2019-04-10 | Outpatient (CLI) | payer BC, SELFPAY ==
[2019-04-10 17:30] LABS: Absolute Lymphocyte Count 2.66 X10^3/uL (0.83-4.51); Absolute Neutrophil Count 3.6 X10^3/uL (2.0-7.7); Basophil# 0.08 X10^3/uL; Eosinophil# 0.72 X10^3/uL; Eosinophils% 9.4 % (0-5); Hematocrit 38.9 % (40-54); Hemoglobin 12.8 g/dL (13.0-16.5); Lymphocyte # 2.66 X10^3/ul (4.0); Lymphocyte % 34.6 % (19-41); Mean Corp Hgb Conc 32.9 g/dL (32-36); Mean Corpuscular Hgb 32.5 pg (27.0-32.0); Mean Corpuscular Volume 98.7 fL (80-94); Mean Platelet Vol. 10.3 fl (6.2-12.0); Monocyte# 0.63 X10^3/uL; Monocyte% 8.2 % (0-10); NRBC Flagged by Analyzer 0 % (0-5); Neutrophil # 3.58 X10^3/uL (2.7-7.7); Neutrophil % 46.5 % (47-70); Platelet Count 227 K/mm3 (150-450); RBC Distribution Width CV 13.1 % (11.6-14.6); RBC Distribution Width SD 47.3 fl (35.1-43.9); Red Blood Count 3.94 M/mm3 (4.6-6.2); White Blood Count 7.7 K/mm3 (4.4-11.0)
[2019-04-10 17:54] LABS: ALB/GLOB Ratio 0.9 RATIO (0.9-2.4); AST(SGOT) 19 U/L (15-37); Alanine Aminotransfer ALT/SGPT 28 U/L (16-61); Albumin, Serum 3.6 g/dL (3.2-5.0); Alkaline Phosphatase 69 U/L (45-117); Anion Gap 7 (5-15); BUN 20 mg/dL (7-18); BUN/Creat Ratio 16.8 RATIO (10-20); Calcium,Total 8.7 mg/dL (8.5-10.1); Chloride 105 mmol/L (98-107); Creatinine, Serum 1.19 mg/dL (0.70-1.30); EST Glomerular Filtration Rate 67 mL/min (>60); Est Glom Filt Rate - Afr Amer 81 mL/min (>60); Globulin 3.8 g/dL (2.2-4.2); Glucose 99 mg/dL (74-106); Potassium 3.8 mmol/L (3.5-5.1); Protein, Total 7.4 g/dL (6.4-8.2); Sodium Level 137 mmol/L (136-145)
== END | disposition home or self-care (01) ==
LOC: MTLAB 16:03
PROVIDERS: Family Provider Family Medicine; PCP Family Medicine; Referring Provider Internal Medicine Rheumatology; Visit Provider Internal Medicine Rheumatology
DX: L40.59 Other psoriatic arthropathy (principal); L40.8 Other psoriasis; I83.10 Varicose veins of unspecified lower extremity with inflammation; I10 Essential (primary) hypertension; E78.5 Hyperlipidemia, unspecified; F32.89 Other specified depressive episodes; G25.81 Restless legs syndrome; Z79.899 Other long term (current) drug therapy
CPT/HCPCS: 36415; 80053; 85025

== ENCOUNTER → 2019-07-04 16:13 | Outpatient (CLI) | payer BC, SELFPAY ==
[2019-07-04 17:40] LABS: Absolute Lymphocyte Count 2.13 X10^3/uL (0.83-4.51); Absolute Neutrophil Count 4.5 X10^3/uL (2.0-7.7); Basophil% 1.3 % (0-1); Eosinophil# 0.42 X10^3/uL; Eosinophils% 5.3 % (0-5); Hematocrit 39.2 % (40-54); Hemoglobin 12.7 g/dL (13.0-16.5); Lymphocyte # 2.13 X10^3/ul (4.0); Lymphocyte % 26.8 % (19-41); Mean Corp Hgb Conc 32.4 g/dL (32-36); Mean Corpuscular Hgb 31.1 pg (27.0-32.0); Mean Corpuscular Volume 96.1 fL (80-94); Mean Platelet Vol. 9.7 fl (6.2-12.0); Monocyte# 0.76 X10^3/uL; Monocyte% 9.6 % (0-10); NRBC Flagged by Analyzer 0 % (0-5); Neutrophil # 4.52 X10^3/uL (2.7-7.7); Neutrophil % 56.7 % (47-70); Platelet Count 257 K/mm3 (150-450); RBC Distribution Width CV 13.4 % (11.6-14.6); RBC Distribution Width SD 47.3 fl (35.1-43.9); Red Blood Count 4.08 M/mm3 (4.6-6.2)
[2019-07-04 17:49] LABS: ALB/GLOB Ratio 0.7 RATIO (0.9-2.4); AST(SGOT) 16 U/L (15-37); Alanine Aminotransfer ALT/SGPT 24 U/L (16-61); Albumin, Serum 3.2 g/dL (3.2-5.0); Alkaline Phosphatase 68 U/L (45-117); Anion Gap 3 (5-15); BUN 15 mg/dL (7-18); BUN/Creat Ratio 16.7 RATIO (10-20); Calcium,Total 8.8 mg/dL (8.5-10.1); Chloride 109 mmol/L (98-107); EST Glomerular Filtration Rate 92 mL/min (>60); Est Glom Filt Rate - Afr Amer 111 mL/min (>60); Globulin 4.5 g/dL (2.2-4.2); Glucose 75 mg/dL (74-106); Potassium 3.6 mmol/L (3.5-5.1); Protein, Total 7.7 g/dL (6.4-8.2); Sodium Level 139 mmol/L (136-145)
== END ==
PROVIDERS: PCP Family Medicine; Referring Provider Internal Medicine Rheumatology; Visit Provider Internal Medicine Rheumatology
DX: I10 Essential (primary) hypertension (principal); L40.59 Other psoriatic arthropathy; L40.8 Other psoriasis; E78.5 Hyperlipidemia, unspecified; I83.10 Varicose veins of unspecified lower extremity with inflammation; F32.89 Other specified depressive episodes; G25.81 Restless legs syndrome; Z79.899 Other long term (current) drug therapy
CPT/HCPCS: 36415; 80053; 85025

== ENCOUNTER → 2019-10-02 15:20 | Outpatient (CLI) | payer BC, SELFPAY ==
[2019-10-02 18:19] LABS: Absolute Lymphocyte Count 2.15 X10^3/uL (0.83-4.51); Basophil# 0.08 X10^3/uL; Basophil% 1.1 % (0-1); Eosinophil# 0.52 X10^3/uL; Hematocrit 37.1 % (40-54); Hemoglobin 12.1 g/dL (13.0-16.5); Lymphocyte # 2.15 X10^3/ul (4.0); Lymphocyte % 29.1 % (19-41); Mean Corp Hgb Conc 32.6 g/dL (32-36); Mean Corpuscular Hgb 31.2 pg (27.0-32.0); Mean Corpuscular Volume 95.6 fL (80-94); Mean Platelet Vol. 10.8 fl (6.2-12.0); Monocyte# 0.68 X10^3/uL; Monocyte% 9.2 % (0-10); NRBC Flagged by Analyzer 0 % (0-5); Neutrophil # 3.95 X10^3/uL (2.7-7.7); Neutrophil % 53.3 % (47-70); Platelet Count 233 K/mm3 (150-450); RBC Distribution Width CV 13.5 % (11.6-14.6); RBC Distribution Width SD 47.5 fl (35.1-43.9); Red Blood Count 3.88 M/mm3 (4.6-6.2); White Blood Count 7.4 K/mm3 (4.4-11.0)
[2019-10-02 18:26] LABS: ALB/GLOB Ratio 0.8 RATIO (0.9-2.4); AST(SGOT) 18 U/L (15-37); Alanine Aminotransfer ALT/SGPT 23 U/L (16-61); Albumin, Serum 3.3 g/dL (3.2-5.0); Alkaline Phosphatase 72 U/L (45-117); Anion Gap 3 (5-15); BUN 18 mg/dL (7-18); Calcium,Total 8.7 mg/dL (8.5-10.1); Chloride 109 mmol/L (98-107); EST Glomerular Filtration Rate 81 mL/min (>60); Est Glom Filt Rate - Afr Amer 99 mL/min (>60); Glucose 100 mg/dL (74-106); Potassium 3.9 mmol/L (3.5-5.1); Protein, Total 7.3 g/dL (6.4-8.2); Sodium Level 136 mmol/L (136-145)
== END ==
PROVIDERS: PCP Family Medicine; Referring Provider Internal Medicine Rheumatology; Visit Provider Internal Medicine Rheumatology
DX: L40.59 Other psoriatic arthropathy (principal); L40.8 Other psoriasis; I83.10 Varicose veins of unspecified lower extremity with inflammation; I10 Essential (primary) hypertension; E78.5 Hyperlipidemia, unspecified; F32.89 Other specified depressive episodes; G25.81 Restless legs syndrome; Z79.899 Other long term (current) drug therapy
CPT/HCPCS: 36415; 80053; 85025

== ENCOUNTER → 2020-01-01 16:28 | Outpatient (CLI) | payer BC, SELFPAY ==
[2020-01-01 17:54] LABS: Absolute Lymphocyte Count 2.47 X10^3/uL (0.83-4.51); Absolute Neutrophil Count 3.1 X10^3/uL (2.0-7.7); Basophil# 0.08 X10^3/uL; Basophil% 1.2 % (0-1); Eosinophil# 0.44 X10^3/uL; Eosinophils% 6.7 % (0-5); Hematocrit 38.2 % (40-54); Hemoglobin 12.2 g/dL (13.0-16.5); Lymphocyte # 2.47 X10^3/ul (4.0); Lymphocyte % 37.5 % (19-41); Mean Corp Hgb Conc 31.9 g/dL (32-36); Mean Corpuscular Volume 97.2 fL (80-94); Mean Platelet Vol. 10.1 fl (6.2-12.0); Monocyte# 0.52 X10^3/uL; Monocyte% 7.9 % (0-10); NRBC Flagged by Analyzer 0 % (0-5); Neutrophil # 3.05 X10^3/uL (2.7-7.7); Neutrophil % 46.4 % (47-70); Platelet Count 216 K/mm3 (150-450); RBC Distribution Width CV 13.6 % (11.6-14.6); RBC Distribution Width SD 48.7 fl (35.1-43.9); Red Blood Count 3.93 M/mm3 (4.6-6.2); White Blood Count 6.6 K/mm3 (4.4-11.0)
[2020-01-01 18:12] LABS: ALB/GLOB Ratio 0.8 RATIO (0.9-2.4); AST(SGOT) 19 U/L (15-37); Alanine Aminotransfer ALT/SGPT 21 U/L (16-61); Albumin, Serum 3.3 g/dL (3.2-5.0); Alkaline Phosphatase 65 U/L (45-117); Anion Gap 4 (5-15); BUN 18 mg/dL (7-18); BUN/Creat Ratio 16.7 RATIO (10-20); Calcium,Total 8.7 mg/dL (8.5-10.1); Chloride 109 mmol/L (98-107); Creatinine, Serum 1.08 mg/dL (0.70-1.30); EST Glomerular Filtration Rate 74 mL/min (>60); Est Glom Filt Rate - Afr Amer 90 mL/min (>60); Globulin 4.2 g/dL (2.2-4.2); Glucose 116 mg/dL (74-106); Potassium 3.7 mmol/L (3.5-5.1); Protein, Total 7.5 g/dL (6.4-8.2); Sodium Level 137 mmol/L (136-145)
== END ==
PROVIDERS: PCP Family Medicine; Referring Provider Internal Medicine Rheumatology; Visit Provider Internal Medicine Rheumatology
DX: L40.59 Other psoriatic arthropathy (principal); L40.8 Other psoriasis; I83.10 Varicose veins of unspecified lower extremity with inflammation; I10 Essential (primary) hypertension; E78.5 Hyperlipidemia, unspecified; F32.89 Other specified depressive episodes; G25.81 Restless legs syndrome; Z79.899 Other long term (current) drug therapy
CPT/HCPCS: 36415; 80053; 85025

== ENCOUNTER → 2020-04-01 16:23 | Outpatient (CLI) | payer BC, SELFPAY ==
[2020-04-01 18:09] LABS: Absolute Neutrophil Count 4.2 X10^3/uL (2.0-7.7); Basophil# 0.09 X10^3/uL; Basophil% 1.1 % (0-1); Eosinophil# 0.59 X10^3/uL; Hematocrit 40.5 % (40-54); Hemoglobin 12.9 g/dL (13.0-16.5); Lymphocyte % 33.3 % (19-41); Mean Corp Hgb Conc 31.9 g/dL (32-36); Mean Corpuscular Hgb 31.6 pg (27.0-32.0); Mean Corpuscular Volume 99.3 fL (80-94); Mean Platelet Vol. 10.5 fl (6.2-12.0); Monocyte# 0.71 X10^3/uL; Monocyte% 8.5 % (0-10); NRBC Flagged by Analyzer 0 % (0-5); Platelet Count 280 K/mm3 (150-450); RBC Distribution Width CV 13.8 % (11.6-14.6); RBC Distribution Width SD 50.5 fl (35.1-43.9); Red Blood Count 4.08 M/mm3 (4.6-6.2); White Blood Count 8.4 K/mm3 (4.4-11.0)
[2020-04-01 18:34] LABS: ALB/GLOB Ratio 0.9 RATIO (0.9-2.4); AST(SGOT) 26 U/L (15-37); Alanine Aminotransfer ALT/SGPT 37 U/L (16-61); Albumin, Serum 3.7 g/dL (3.2-5.0); Alkaline Phosphatase 75 U/L (45-117); Anion Gap 7 (5-15); BUN 19 mg/dL (7-18); BUN/Creat Ratio 17.3 RATIO (10-20); Calcium,Total 8.9 mg/dL (8.5-10.1); Chloride 104 mmol/L (98-107); EST Glomerular Filtration Rate 73 mL/min (>60); Est Glom Filt Rate - Afr Amer 88 mL/min (>60); Globulin 4.1 g/dL (2.2-4.2); Glucose 85 mg/dL (74-106); Potassium 3.8 mmol/L (3.5-5.1); Protein, Total 7.8 g/dL (6.4-8.2); Sodium Level 137 mmol/L (136-145)
== END ==
PROVIDERS: PCP Family Medicine; Referring Provider Internal Medicine Rheumatology; Visit Provider Internal Medicine Rheumatology
DX: L40.59 Other psoriatic arthropathy (principal); L40.8 Other psoriasis; I83.10 Varicose veins of unspecified lower extremity with inflammation; I10 Essential (primary) hypertension; E78.5 Hyperlipidemia, unspecified; F32.89 Other specified depressive episodes; G25.81 Restless legs syndrome; Z79.899 Other long term (current) drug therapy
CPT/HCPCS: 36415; 80053; 85025

== ENCOUNTER → 2020-05-21 16:13 | Outpatient (CLI) | payer BC, SELFPAY ==
[2020-05-21 17:50] LABS: Absolute Lymphocyte Count 2.28 X10^3/uL (0.83-4.51); Absolute Neutrophil Count 3.3 X10^3/uL (2.0-7.7); Basophil% 1.4 % (0-1); Eosinophil# 0.59 X10^3/uL; Eosinophils% 8.3 % (0-5); Hematocrit 39.3 % (40-54); Lymphocyte # 2.28 X10^3/ul (4.0); Lymphocyte % 32.1 % (19-41); Mean Corp Hgb Conc 33.1 g/dL (32-36); Mean Corpuscular Hgb 32.1 pg (27.0-32.0); Mean Platelet Vol. 9.8 fl (6.2-12.0); Monocyte# 0.74 X10^3/uL; Monocyte% 10.4 % (0-10); NRBC Flagged by Analyzer 0 % (0-5); Neutrophil # 3.31 X10^3/uL (2.7-7.7); Neutrophil % 46.5 % (47-70); Platelet Count 258 K/mm3 (150-450); RBC Distribution Width CV 13.1 % (11.6-14.6); RBC Distribution Width SD 46.1 fl (35.1-43.9); Red Blood Count 4.05 M/mm3 (4.6-6.2); White Blood Count 7.1 K/mm3 (4.4-11.0)
[2020-05-21 18:00] LABS: ALB/GLOB Ratio 0.9 RATIO (0.9-2.4); AST(SGOT) 21 U/L (15-37); Alanine Aminotransfer ALT/SGPT 28 U/L (16-61); Albumin, Serum 3.6 g/dL (3.2-5.0); Alkaline Phosphatase 80 U/L (45-117); Anion Gap 5 (5-15); BUN 19 mg/dL (7-18); BUN/Creat Ratio 16.1 RATIO (10-20); Calcium,Total 8.9 mg/dL (8.5-10.1); Chloride 107 mmol/L (98-107); Creatinine, Serum 1.18 mg/dL (0.70-1.30); EST Glomerular Filtration Rate 67 mL/min (>60); Est Glom Filt Rate - Afr Amer 81 mL/min (>60); Globulin 4.2 g/dL (2.2-4.2); Glucose 102 mg/dL (74-106); Potassium 4.1 mmol/L (3.5-5.1); Protein, Total 7.8 g/dL (6.4-8.2); Sodium Level 136 mmol/L (136-145)
== END ==
PROVIDERS: PCP Family Medicine; Referring Provider Internal Medicine Rheumatology; Visit Provider Internal Medicine Rheumatology
DX: L40.59 Other psoriatic arthropathy (principal); L40.8 Other psoriasis; I83.10 Varicose veins of unspecified lower extremity with inflammation; I10 Essential (primary) hypertension; E78.5 Hyperlipidemia, unspecified; F32.89 Other specified depressive episodes; G25.81 Restless legs syndrome; Z79.899 Other long term (current) drug therapy
CPT/HCPCS: 36415; 80053; 85025